=== PATIENT | female | born 1950 | race Caucasian/White ===

== ENCOUNTER 2020-01-27 10:19 | Emergency (ER) | payer MEDICARE, OTHER ==
[~2020-01-27] VITALS: Ht 160 cm; Wt 64.0 kg
[~2020-01-27 10:19] MED LIST: AMIT50 PO; AZIT250 PO; CODACE60 PO; LANS30EC PO; OXYC40ER PO; PREG75 PO
[2020-01-27] MEDS ORDERED: Zithromax250 MG PO (11:40)
[2020-01-27] MEDS ORDERED: ALBU90OI INH (11:40)
[2020-01-27] MEDS ORDERED: Prednisone20 MG PO (11:40)
== END 2020-01-27 11:58 | disposition home or self-care (01) ==
LOC: ER 10:19
DX: J44.1 Chronic obstructive pulmonary disease with (acute) exacerbation (principal); M06.9 Rheumatoid arthritis, unspecified; Z79.899 Other long term (current) drug therapy
CPT/HCPCS: 94640; 96372; 99283-25; J2930